=== PATIENT | female | born 1970 | race Caucasian/White ===

== ENCOUNTER 2022-03-26 10:00 | Day surgery (SDC) | payer OTHER ==
[~2022-03-26] VITALS: Ht 165.1 cm; Wt 66.3 kg
[~2022-03-26 10:00] MED LIST: ATOR10 PO; RANI150 PO; SUCR1SU PO; SUPHEDRINE SINU PO
[2022-03-26] MEDS ORDERED: TOCO1000 (10:24)
[2022-03-26] MEDS ORDERED: FISH OIL-VIT D1 EACH (10:25)
== END 2022-03-26 12:00 | disposition home or self-care (01) ==
LOC: ORSCSDS 10:00
PROVIDERS: Internal Medicine Gastroenterology
PROC: 0DBN8ZX Excision of Sigmoid Colon, Via Natural or Artificial Opening Endoscopic, Diagnostic (ICD-10-PCS; principal; 2022-03-26 11:15)
PROC: 0DBL8ZX Excision of Transverse Colon, Via Natural or Artificial Opening Endoscopic, Diagnostic (ICD-10-PCS; principal; 2022-03-26 11:15)
DX: R19.5 Other fecal abnormalities (principal); K63.5 Polyp of colon; K64.8 Other hemorrhoids; Z98.84 Bariatric surgery status; Z79.899 Other long term (current) drug therapy
CPT/HCPCS: 88305; J2704; J7120